=== PATIENT | female | born 2000 | race African-American/Black ===

== ENCOUNTER 2021-10-21 19:55 | Emergency (ER) | payer OTHER ==
[2021-10-21 20:55] VITALS: BP 125/83; PULSE 82; RESP 16; TEMP 98
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
[2021-10-21] MEDS ORDERED: CYCLOBENZAPRINE 10MG STARTER 3 TAB BTL PO STA (21:17)
[2021-10-21] MEDS ORDERED: IBUPROFEN 600 MG STARTER PACK 4 TAB BTL PO STA (21:17)
== END 2021-10-21 21:28 | disposition home or self-care (01) ==
LOC: EC 19:55
DX: S29.012A Strain of muscle and tendon of back wall of thorax, initial encounter (principal); V89.2XXA Person injured in unspecified motor-vehicle accident, traffic, initial encounter
CPT/HCPCS: 99283